=== PATIENT | female | born 1945 | race African-American/Black ===

== ENCOUNTER 2017-11-11 14:34 | Emergency (ER) | payer MEDICARE, OTHER ==
[2017-11-11 18:12] LABS: Anion Gap 12 mmol/L (10-20); BUN (Urea Nitrogen) 17 mg/dL (9.8-20.1); Calc. Creatinine Clearance 0 mL/min (70-130); Calcium 9.6 mg/dL (7.8-10.44); Carbon Dioxide 26 mmol/L (23-31); Chloride 102 mmol/L (98-107); Estimated GFR-MDRD 71; Glucose 83 mg/dL (80-115); Potassium 3.9 mmol/L (3.5-5.1); Sodium 136 mmol/L (136-145)
[2017-11-11 19:23] LABS: Bilirubin Negative (Negative); Blood, Urine Negative (Negative); Clarity CLEAR (Clear); Glucose, Urine (Dipstick) Negative (Negative); Leukocyte Moderate (Negative); Nitrite Negative (Negative); Protein, Urine (Dipstick) Negative (Neg-Trace); Specific Gravity, Urine 1.018 (1.002-1.036); Urobilinogen 0.2 mg/dL (0.2-1.0); pH, Urine 5.5 (5.0-9.0)
[2017-11-11 19:26] LABS: Bacteria/HPF Rare-Few HPF (None Seen); Hyaline Casts/LPF 0-3 HYALINE CAST LPF (0-3 Hyaline); RBC/HPF 0-3 HPF (0-3); Squamous Epithelial 0-3 HPF (0-3)
== END 2017-11-11 19:59 | disposition home or self-care (01) ==
LOC: ERS 14:34
DX: N39.0 Urinary tract infection, site not specified (principal)
CPT/HCPCS: 36415; 80048; 81003; 81015; 87086; 99283

== ENCOUNTER 2019-03-25 16:37 | Inpatient (IN) | payer MEDICARE ==
[2019-03-25 18:21] LABS: #Lymphocytes 0.8 thou/uL (1.20-3.40); #Monocytes 0.2 thou/uL (0.11-0.59); #Neutrophils 2.6 thou/uL (1.40-6.50); %Basophils 0.2 % (0.0-1.0); %Eosinophils 0.4 % (0.0-10.0); %Lymphocytes 21.5 % (21.0-51.0); %Monocytes 6.1 % (0.0-10.0); %Neutrophils 71.9 % (42.0-75.0); Hemoglobin 5.1 g/dL (12.0-16.0); Mean Corpuscular HGB CONC 27.6 g/dL (32.0-36.0); Mean Corpuscular Hemoglobin 15.8 pg (27.0-31.0); Mean Corpuscular Volume 57.2 fL (78.0-98.0); RBC Distribution Width 22.1 % (11.5-14.5); Red Blood Cell (RBC) Count 3.21 mill/uL (4.20-5.40); White Blood Cell (WBC) Count 3.6 thou/uL (4.8-10.8)
[2019-03-25 18:25] LABS: ALT (SGPT) 18 U/L (8-55); AST (SGOT) 19 U/L (5-34); Alkaline Phosphatase 54 U/L (40-150); Anion Gap 9 mmol/L (10-20); BUN (Urea Nitrogen) 12 mg/dL (9.8-20.1); Bilirubin, Total 0.5 mg/dL (0.2-1.2); Calc. Creatinine Clearance 0 mL/min (70-130); Calcium 9.3 mg/dL (7.8-10.44); Carbon Dioxide 27 mmol/L (23-31); Chloride 104 mmol/L (98-107); Estimated GFR-MDRD 87; Globulin 3.1 g/dL (2.4-3.5); Glucose 99 mg/dL (83-110); Potassium 3.2 mmol/L (3.5-5.1); Protein, Total 7.1 g/dL (6.0-8.3); Sodium 137 mmol/L (136-145)
--- NOTE | 2019-03-25 18:32 | RAD ---
TWO VIEW CHEST: 03/25/19 HISTORY: Cough. Mild cardiomegaly. Mild vascular engorgement. No focal infiltrate. No effusion. IMPRESSION: Cardiomegaly and mild vascular engorgement. POS: OFF
[2019-03-25 18:40] LABS: Anisocytosis SLIGHT = 6-15 cells (100X) (0-5/hpf); Hypochromia MODERATE=16-30 cells (100X) (0-5/hpf); MDiff Complete? YES; Mean Platelet Volume 5.1 fL (7.4-10.4); Microcytosis MODERATE=15-30 cells (100X) (0-5/hpf); Platelet Count 151 thou/uL (130-400); Platelet Morphology Comment Appears Adequate; Polychromasia SLIGHT = 2-3 cells (100X) (0-2/hpf); Reflex for Review?? YES; Schistocytes MODERATE= 6-15 cells (100X) (0-1/hpf); Tear Drops SLIGHT = 2-5 cells (100X) (0-1/hpf)
[2019-03-25 23:20] VITALS: BMI 28.7
[2019-03-25] MEDS ORDERED: Acetaminophen 325 MG TAB PO PRN (23:41)
[2019-03-25] MEDS ORDERED: Acetaminophen 650 MG Suppository PR PRN (23:41)
[2019-03-25] MEDS ORDERED: Ondansetron ODT 4 MG TAB PO PRN (23:41)
[2019-03-25] MEDS ORDERED: Ondansetron PF 4 MG/2 ML Vial IVP PRN (23:41)
[2019-03-25 23:58] LABS: Hemoglobin 5.9 g/dL (12.0-16.0)
--- NOTE | 2019-03-26 01:19 | PDOC.EVN ---
Event Note - Event Note Event Note: (Dictation System is Down) ADMISSION H&P Chief Complaint: Urinary Frequency HPI/ROS: This is a 73 year old woman who states she was in her usual state of health until yesterday when she noted urinary frequency. Today she reports having an episode of vomiting, prompting her to come in and be evaluated for what she suspects is a urinary tract infection. She denies any dysuria or hematuria. Laboratory studies done in the ER showed she was significantly anemic with a hemoglobin of 5.1, therefore transfusion with PRBCs was ordered and the patient was referred for further investigation. She denies any changes with her stools. No melena or bright red blood per rectum. Denies any hematemesis and states when she vomited it was food without any blood or coffee ground emesis. She is typically very active and continues to work. Denies any dizziness or lightheadedness. No chest pain or sob. Reports long standing lower leg swelling, currently the right is worse than the left but states it does tend to alternate. PMH: 1. Hypertension. 2. Lower leg edema. PSH: 1. Hysterectomy. SH: Patient states she is fully independent and very active. Continues to work. Denies any smoking history. No drug use or alcohol. Allergies: No Known Drug Allergies Allergy (Verified 03/25/19 23:24) PER ER NOTES Home Medications: Acetaminophen (Tylenol) 650 mg PO Q4-6H PRN PRN Reason: Headache/Fever/Mild Pain (1-3) Vital Signs Temp Pulse Resp BP BP Pulse Ox 03/26/19 00:35 98.2 F 18 158/71 H 99 03/25/19 22:45 99.1 F 76 18 161/71 H 100 Weight 178 lb Physical Exam: PHYSICAL EXAMINATION: GENERAL: The patient appears well developed, well nourished, is in no acute distress. HEENT: Normocephalic and atraumatic. Pupils are equal, round and reactive to light. Sclerae without icterus. Oropharynx is clear. NECK: Supple LUNGS: Clear to auscultation bilaterally without any wheezes, rales, or rhonchi. CARDIAC: Regular rate and rhythm without audible murmurs, rubs, or gallops. ABDOMEN: Soft, nontender, nondistended. Normoactive bowel sounds present. No guarding or rigidity. No renal angle tenderness. EXTREMITIES: RLE swelling extending up to the knee. No pitting edema. NEUROLOGIC: Alert and oriented x3. SKIN: No rash or jaundice. Investigations: 1. CXR: Cardiomegaly and mild vascular engorgement. WBC 3.6 thou/uL (4.8-10.8) L 03/25/19 17:41 Hgb 5.9 g/dL (12.0-16.0) L* 03/25/19 23:45 Hct 20.3 % (36.0-47.0) L 03/25/19 23:45 MCV 57.2 fL (78.0-98.0) L 03/25/19 17:41 Plt Count 151 thou/uL (130-400) 03/25/19 17:41 Neutrophils % 71.9 % (42.0-75.0) 03/25/19 17:41 Sodium 137 mmol/L (136-145) 03/25/19 17:41 Potassium 3.2 mmol/L (3.5-5.1) L 03/25/19 17:41 Chloride 104 mmol/L (98-107) 03/25/19 17:41 Carbon Dioxide 27 mmol/L (23-31) 03/25/19 17:41 BUN 12 mg/dL (9.8-20.1) 03/25/19 17:41 Creatinine 0.79 mg/dL (0.6-1.1) 03/25/19 17:41 Glucose 99 mg/dL (83-110) 03/25/19 17:41 Calcium 9.3 mg/dL (7.8-10.44) 03/25/19 17:41 Total Bilirubin 0.5 mg/dL (0.2-1.2) 03/25/19 17:41 AST 19 U/L (5-34) 03/25/19 17:41 ALT 18 U/L (8-55) 03/25/19 17:41 Alkaline Phosphatase 54 U/L (40-150) 03/25/19 17:41 B-Natriuretic Peptide 135.4 pg/mL (0-100) H 03/25/19 23:36 Serum Total Protein 7.1 g/dL (6.0-8.3) 03/25/19 17:41 Albumin 4.0 g/dL (3.4-4.8) 03/25/19 17:41 Impression & Plan: Ms. Majano is a very pleasant 73 year old woman who presents with urinary frequency and referred for anemia with hemoglobin of 5.1, requiring blood transfusion. No signs/symptoms of bleeding. Patient is receiving her first unit of 2 units of PRBCs. Patient reports urinary frequency. UA and UCx ordered. CXR notable for cardiomegaly and mild vascular engorgement. BNP added on to labs and echo requested. Guaiac negative. Will check iron studies with morning labs. Patient with known history of hypertension. Will resume home meds and monitor BP. For right lower leg swelling, will get venous doppler. Continue to monitor H/H. Potassium will be replaced.
[2019-03-26 02:55] LABS: Bilirubin Negative (Negative); Blood, Urine Negative (Negative); Clarity Clear (Clear); Glucose, Urine (Dipstick) Normal (Negative); Leukocyte 500 Leu/uL (Negative); Nitrite Negative (Negative); Protein, Urine (Dipstick) 10 mg/dL (Neg-Trace); RBC/HPF 0-3 HPF (0-3); Renal Epithelial 0-3 HPF (None Seen); Transitional Epithelial 0-3 HPF (None Seen); WBC/HPF 21-50 HPF (0-3)
[2019-03-26 02:56] LABS: Bacteria/HPF 1+ HPF (None Seen); Urine Culture Reflex No No
[2019-03-26 05:57] LABS: Anion Gap 9 mmol/L (10-20); BUN (Urea Nitrogen) 10 mg/dL (9.8-20.1); Calc. Creatinine Clearance 90 mL/min (70-130); Calcium 9.2 mg/dL (7.8-10.44); Carbon Dioxide 27 mmol/L (23-31); Chloride 106 mmol/L (98-107); Estimated GFR-MDRD Greater than 90; Glucose 94 mg/dL (83-110); Potassium 3.7 mmol/L (3.5-5.1); Sodium 138 mmol/L (136-145)
[2019-03-26 05:58] LABS: Iron 34 ug/dL (50-170); Iron Binding Capacity, Total 358 mcg/dL (265-497)
[2019-03-26 06:25] LABS: Hemoglobin 6.7 g/dL (12.0-16.0); Mean Corpuscular HGB CONC 28.5 g/dL (32.0-36.0); Mean Corpuscular Hemoglobin 19.1 pg (27.0-31.0); Mean Platelet Volume 5.2 fL (7.4-10.4); Platelet Count 109 thou/uL (130-400); RBC Distribution Width 26.2 % (11.5-14.5); Red Blood Cell (RBC) Count 3.49 mill/uL (4.20-5.40); White Blood Cell (WBC) Count 2.9 thou/uL (4.8-10.8)
--- NOTE | 2019-03-26 07:39 | ULT ---
PRELIMINARY REPORT/[facility]/EMERGENCY AFTER HOURS PROCEDURE: EXAM: US Duplex Bilateral Lower Extremity Veins EXAM DATE/TIME: 03/25/2019 11:40 PM CLINICAL HISTORY: 73 years old, female; Edema, localized; Lower extremity, bilateral; Leg, lower; Patient HX: Ble pain/edema, edema worse in RT leg TECHNIQUE: Imaging protocol: Real-time duplex ultrasound of the Bilateral Lower Extremities with 2-D boyd scale, color Doppler flow and spectral waveform analysis with image documentation. Complete exam focused on the bilateral lower extremity veins. COMPARISON: No relevant prior studies available. FINDINGS: Right deep veins: The common femoral, femoral, popliteal and visualized calf veins are patent without thrombus. Normal compressibility, augmentation response and Doppler waveforms. Right superficial veins: Saphenofemoral junction is patent without thrombus. Left deep veins: The common femoral, femoral, popliteal and visualized calf veins are patent without thrombus. Normal compressibility, augmentation response and Doppler waveforms. Left superficial veins: Saphenofemoral junction is patent without thrombus. Soft tissues: Left Bakers cyst measuring up to 4.7cm. Calf edema. IMPRESSION: No evidence of deep vein thrombosis. Left popliteal cyst. Thank you for allowing us to participate in the care of your patient. Dictated and Authenticated by: Josue Aaron MD 03/26/2019 2:05 AM Central Time ([place] & [place]) FINAL REPORT VENOUS DUPLEX SONOGRAM BILATERAL LOWER EXTREMITY PERFORMED ON AN EMERGENCY BASIS: Date: 03/25/19 Time: 2343 hours HISTORY: Bilateral leg pain and edema FINDINGS: I agree with the preliminary report by Dr. Aaron from [facility]. No sonographic jean dence of DVT within either lower extremity. Good color and spectral Doppler flow. Left popliteal cyst incidentally noted. Code QA. Transcribed Date/Time: 03/26/2019 8:06 AM
[2019-03-26 07:50] LABS: Band 1 % (5-11); Eosinophils 4 % (0-10); Hypochromia MODERATE=16-30 cells (100X) (0-5/hpf); Lymphocytes 37 % (21-51); MDiff Complete? YES; Microcytosis MARKED = >30 cells (100X) (0-5/hpf); Monocytes 12 % (0-10); Neutrophil 46 % (42-75); Ovalocytes SLIGHT = 2-5 cells (100X) (0-1/hpf); Platelet Morphology Comment Appears Decreased; Polychromasia SLIGHT = 2-3 cells (100X) (0-2/hpf); Schistocytes SLIGHT = 2-5 cells (100X) (0-1/hpf)
[2019-03-26] MEDS: Famotidine/PF 20 mg/2ml Vial SLOW IVP SCH ×2 (08:02→20:33)
[2019-03-26 10:28] LABS: Hemoglobin 7.1 g/dL (12.0-16.0)
--- NOTE | 2019-03-26 12:59 | PDOC.HOSPP ---
- Subjective Subjective: no felipe bleeding per rectum/vagina/urethra or hemoptysis no prior egd/colonoscopy does not take any pain meds, ambulates by herself (no assistive devices) normal prior mammogram, has had hysterectomy no h/o weight loss or dark stools No cough or expectoration - Objective Vital Signs & Weight: Vital Signs (12 hours) Temp Pulse Resp BP BP Pulse Ox 03/26/19 11:00 97.9 F 51 L 19 169/65 H 100 03/26/19 08:00 95 03/26/19 07:38 98.1 F 55 L 17 182/78 H 95 03/26/19 03:40 98.7 F 17 170/82 H 98 Weight Weight 178 lb Most Recent Monitor Data Heart Rate from ECG 83 I&O: 03/25/19 03/26/19 03/27/19 06:59 06:59 06:59 Intake Total 1050 Balance 1050 Result Diagrams: 03/26/19 10:04 03/26/19 05:04 ROS - Review of Systems All systems: All other ROS were reviewed and found negative. - Medication Medications: Active Medications Generic Name Dose Route Start Last Admin Trade Name Freq PRN Reason Stop Dose Admin Acetaminophen 650 mg 03/25/19 23:41 03/26/19 00:38 Tylenol PO 650 mg Q4H PRN Administration Headache/Fever/Mild Pain (1-3) Famotidine 20 mg 03/26/19 09:00 03/26/19 08:02 Pepcid SLOW IVP 20 mg Q12HR MAGDALENE Administration - Exam NAD, awake alert Eye: PERRL, anicteric sclera ENT: no oropharyngeal lesions, moist mucosa Neck: supple, JVD Heart: RRR, no murmur Respiratory: no wheezes, no rales Gastrointestinal: soft, non-tender, normal bowel sounds Extremities: no clubbing, no edema Neurological: CN's grossly intact, no focal deficits Musculoskeletal: normal tone, normal strength Psychiatric: normal affect, A&O x 3 Hosp A/P (1) Severe anemia Code(s): D64.9 - ANEMIA, UNSPECIFIED Status: Acute Plan: iron def (2) UTI (urinary tract infection) Status: Acute Qualifiers: Urinary tract infection type: acute cystitis Hematuria presence: without hematuria Qualified Code(s): N30.00 - Acute cystitis without hematuria (3) HTN (hypertension) Code(s): I10 - ESSENTIAL (PRIMARY) HYPERTENSION Status: Acute Qualifiers: Hypertension type: essential hypertension Qualified Code(s): I10 - Essential (primary) hypertension - Plan has recieved 2 u prbc last night ldh, cea, debi are normal will obtain Hb electrophoresis peripheral smear read is pending flow cytometry pending will obtain GI consultation in view of severe iron def anemia, no prior endoscopies. hemostable Gave updates to son and patient at bedside.
[2019-03-26] MEDS ORDERED: Amlodipine 10 MG TAB PO SCH (13:15)
[2019-03-26] MEDS ORDERED: Furosemide 20 MG/2 ML VIAL SLOW IVP SCH (13:15)
[2019-03-26] MEDS ORDERED: GoLYTELY 4,000 ml Bottle PO SCH (19:30)
[2019-03-26] MEDS ORDERED: Prevnar 13-Val Conj/PF 0.5 ML SYRINGE IM ONE (21:00)
--- NOTE | 2019-03-27 02:52 | CON ---
DATE OF CONSULTATION: REASON FOR CONSULT: Severe iron-deficiency anemia. HISTORY OF PRESENT ILLNESS: Ms. Majano is a 73-year-old female, who came to the emergency room yesterday evening with complaints of shortness of breath and profound fatigue for the past several weeks, but she actually came to the emergency room for frequent urination, left lower extremity swelling, and some cough. She was worried she maybe had UTI or pneumonia. Here, she has a hemoglobin of 5, low MCV. She was given a couple units of blood. She denies any history of melena, hematochezia, or hematemesis. She has had no weight loss, maybe a couple pounds of anything. Her appetite has been good. She has no nausea or vomiting. She notes there is no change in her bowel function. She denies any NSAID use, except for occasionally taking Tylenol or aspirin. She has never had any endoscopy. She has had a previous hysterectomy. She eats well. She works at [employer] and she states after about 12 hours, she gets pretty tired and have a hard time being in the room sometimes, but otherwise felt fine. REVIEW OF SYSTEMS: Negative for chest pain, shortness of breath, dyspnea on exertion, or palpitations. Positive for shortness of breath on exertion, fatigue with exertion, and cough. Negative for fever or chills. PAST MEDICAL HISTORY: Denies any medical problems. PAST SURGICAL HISTORY: Hysterectomy many years ago in 1997. SOCIAL HISTORY: Denies alcohol, drugs, or tobacco. Her is sitting at the bedside. ALLERGIES: NONE KNOWN. MEDICATIONS: None. Present medications Zofran p.r.n. She had Pneumovax. Tylenol p.r.n. Norvasc. PHYSICAL EXAMINATION: GENERAL: She is resting comfortably in bed. VITAL SIGNS: Pulse is 51 to 60, temperature is 98, and blood pressure is /83. HEENT: Oropharynx is dry. Mucous membranes are moist. NECK: Supple. No adenopathy. LUNGS: Clear. HEART: Regular without clicks or murmurs. ABDOMEN: Soft and nontender with no palpable hepatosplenomegaly. There is no rebound. There is no guarding. There is a scar in the midline consistent with previous hysterectomy. EXTREMITIES: Reveal slight edema in the right lower extremity. She has some arthritic changes in the right ankle. On evaluation here, she had a venogram, bilateral lower extremities yesterday which was negative. She had a chest x-ray yesterday that showed some mild cardiomegaly and vascular enlargement. LABORATORY DATA: Hemoglobin is 5.1 on admission with MCV of 57, white count 3.6, and platelet count 151. After 2 units of blood, hemoglobin 7.1 today. Comp met profile was normal. Iron was 34, ferritin was 4.7. BNP was 135 on admission. CEA was 1.03 on admission. Liver function tests were normal. Albumin was 4, protein was 7. ASSESSMENT: Severe iron-deficiency anemia of unknown etiology. She seems to eat well. She does not seem to be losing weight, having change in bowel function, or any bleeding. She does not take any excessive NSAIDs. PLAN: EGD and colonoscopy tomorrow. Job ID: [id number]
[2019-03-27] MEDS: Amlodipine 10 MG TAB PO SCH (08:53)
[2019-03-27] MEDS: Famotidine/PF 20 mg/2ml Vial SLOW IVP SCH ×2 (08:53→20:18)
[2019-03-27] MEDS ORDERED: Iron Sucrose Complex 200 MG in Sodium Chloride 0.9% 250 ML 250 ML IVPB SCH (14:30)
--- NOTE | 2019-03-27 14:33 | PDOC.HOSPP ---
- Subjective Subjective: no sob, she drank golytely prep for colonoscopy is npo for procedure today - Objective Vital Signs & Weight: Vital Signs (12 hours) Temp Pulse Resp BP Pulse Ox 03/27/19 11:04 97.7 F 56 L 16 175/71 H 100 03/27/19 08:53 59 L 03/27/19 07:48 98.3 F 59 L 16 161/73 H 100 03/27/19 05:33 98.2 F 69 18 167/69 H 97 Weight Weight 178 lb Most Recent Monitor Data Heart Rate from ECG 83 I&O: 03/26/19 03/27/19 03/28/19 06:59 06:59 06:59 Intake Total 1050 1000 Output Total 1300 Balance 1050 -300 Result Diagrams: 03/26/19 10:04 03/26/19 05:04 Additional Labs: Accuchecks 03/27/19 03/26/19 05:25 19:42 POC Glucose 99 93 ROS - Review of Systems All systems: All other ROS were reviewed and found negative. - Medication Medications: Active Medications Generic Name Dose Route Start Last Admin Trade Name Freq PRN Reason Stop Dose Admin Acetaminophen 650 mg 03/25/19 23:41 03/26/19 00:38 Tylenol PO 650 mg Q4H PRN Administration Headache/Fever/Mild Pain (1-3) Amlodipine Besylate 10 mg 03/27/19 09:00 03/27/19 08:53 Norvasc PO 10 mg DAILY MAGDALENE Administration Famotidine 20 mg 03/26/19 09:00 03/27/19 08:53 Pepcid SLOW IVP 20 mg Q12HR MAGDALENE Administration - Exam NAD, awake alert Eye: PERRL, anicteric sclera ENT: normocephalic atraumatic, moist mucosa Neck: supple, no JVD Heart: RRR, no murmur Respiratory: no wheezes, no rales Gastrointestinal: soft, non-tender, normal bowel sounds Extremities: no cyanosis, no edema Neurological: CN's grossly intact, no focal deficits Musculoskeletal: normal tone, no muscle wasting Psychiatric: normal affect, A&O x 3 Hosp A/P (1) Severe anemia Code(s): D64.9 - ANEMIA, UNSPECIFIED Status: Acute Plan: iron def (2) UTI (urinary tract infection) Status: Acute Qualifiers: Urinary tract infection type: acute cystitis Hematuria presence: without hematuria Qualified Code(s): N30.00 - Acute cystitis without hematuria (3) HTN (hypertension) Code(s): I10 - ESSENTIAL (PRIMARY) HYPERTENSION Status: Acute Qualifiers: Hypertension type: essential hypertension Qualified Code(s): I10 - Essential (primary) hypertension - Plan will give total of 2 dose iv iron for egd/colonoscopy today hemostable ldh, debi direct and indirect are normal Hb electrophoresis, flow cytometry, protein and urine electrophoresis pending hemeonc consult if egd/colonoscopy are normal
[2019-03-27] MEDS ORDERED: GoLYTELY 4,000 ml Bottle PO SCH ×2 (15:00→16:46)
[2019-03-27] MEDS ORDERED: PROPOFOL 200 MG/20 ML VIAL ONE (15:44)
--- NOTE | 2019-03-27 21:06 | OP ---
DATE OF PROCEDURE: 03/27/2019 PROCEDURES PERFORMED: Esophagogastroduodenoscopy and polypectomy and incomplete colonoscopy secondary to poor prep. ANESTHESIA: TIVA. POSTPROCEDURE DIAGNOSES: 1. Gastric polyp 7 mm slightly ulcerated in the distal aspect of the body at the greater curve, removed by snare polypectomy and submitted to Pathology. 2. Small hiatal hernia with mild reflux esophagitis. 3. Otherwise normal esophagogastroduodenoscopy. 4. Colonoscopy notable for scattered polyps with one large polyp seen in the right colon. Unfortunately secondary to extremely poor prep, these could not be removed. The patient will re-prepped tomorrow for definitive therapy. One of the polyps in the right colon is quite large and may or may not be able to be removed endoscopically, but again the poor prep precluded any meaningful visualization to make determinations whether they could be easily removed. PROCEDURE IN DETAIL: After the patient was informed of the risk, benefits, and possible complications of endoscopy including perforation, bleeding, reaction to medication, and aspiration, informed consent was obtained. The patient was brought to endoscopy suite, where she was sedated in gradual fashion. Once she was comfortable, a bite block was placed inside the orifice. The endoscope was advanced through the esophagus, stomach, and second and third portions of the duodenum. The esophagus notable for that of 4 cm hiatal hernia with mild erythema in the distal esophagus. There was no evidence of ulcers or Cheo ulcers or lesions. Retroflexed views in the stomach were normal. There was a 7-mm nodule-like polyp in the body of the stomach along the greater curve distally. It was removed by hot snare polypectomy and submitted to Pathology. The duodenum was normal. The duodenum of the 2nd and 3rd portions was normal. The scope was removed. The patient tolerated this portion of the procedure well. There were no complications. The patient was turned in the room and rectal exam was performed. The endoscope was advanced to the anal canal through the colon to the appendiceal orifice. The prep was extremely poor. There was a small polyp in the sigmoid colon which we were going to take out, but could not relocate secondary to the poor quality of the prep. Despite irrigation and suction, we could not clear the colon. There was a larger polyp in the right colon, one at the ileocecal valve, and one in the ascending colon, which may have been 1-2 cm in size. Due to the poor prep nature, it could not be fully visualized and could not be removed. The scope was removed. RECOMMENDATIONS: Repeat colonoscopy tomorrow morning. Await pathology from gastric polyp. Job ID: [id number]
[2019-03-28 06:41] LABS: #Eosinphils 0.1 thou/uL (0.0-0.7); #Lymphocytes 1.2 thou/uL (1.20-3.40); #Monocytes 0.4 thou/uL (0.11-0.59); #Neutrophils 2.6 thou/uL (1.40-6.50); %Basophils 0.1 % (0.0-1.0); %Eosinophils 2.8 % (0.0-10.0); %Lymphocytes 27.9 % (21.0-51.0); %Monocytes 9.7 % (0.0-10.0); %Neutrophils 59.5 % (42.0-75.0); Hemoglobin 7.4 g/dL (12.0-16.0); Mean Corpuscular HGB CONC 29.9 g/dL (32.0-36.0); Mean Corpuscular Hemoglobin 19.6 pg (27.0-31.0); Mean Corpuscular Volume 65.5 fL (78.0-98.0); Mean Platelet Volume 5.5 fL (7.4-10.4); Platelet Count 90 thou/uL (130-400); RBC Distribution Width 27.2 % (11.5-14.5); Red Blood Cell (RBC) Count 3.78 mill/uL (4.20-5.40); White Blood Cell (WBC) Count 4.3 thou/uL (4.8-10.8)
[2019-03-28 07:03] LABS: Anion Gap 12 mmol/L (10-20); BUN (Urea Nitrogen) 8 mg/dL (9.8-20.1); Calc. Creatinine Clearance 94 mL/min (70-130); Calcium 9.4 mg/dL (7.8-10.44); Carbon Dioxide 29 mmol/L (23-31); Chloride 102 mmol/L (98-107); Estimated GFR-MDRD Greater than 90; Glucose 86 mg/dL (83-110); Sodium 140 mmol/L (136-145)
[2019-03-28 07:12] LABS: Potassium 2.7 mmol/L (3.5-5.1)
[2019-03-28] MEDS ORDERED: Potassium Chloride 20 MEQ in Premix Bag 1 BAG IVPB SCH (08:15)
[2019-03-28] MEDS: Amlodipine 10 MG TAB PO SCH (08:27)
[2019-03-28] MEDS ORDERED: Iron Sucrose Complex 200 MG in Sodium Chloride 0.9% 250 ML 250 ML IVPB SCH (08:45)
[2019-03-28] MEDS ORDERED: Iron, Sodium Ferric Gluconate 250 MG in Sodium Chloride 0.9% 100 ML IVPB SCH (09:00)
[2019-03-28] MEDS ORDERED: EPINEPHrine 1 MG/10 ML Abboject SYRINGE ONE (12:45)
[2019-03-28] MEDS ORDERED: Lidocaine 1% PF 5 ML VIAL ONE (12:45)
[2019-03-28] MEDS ORDERED: PROPOFOL 200 MG/20 ML VIAL ONE (12:45)
--- NOTE | 2019-03-28 13:07 | PDOC.HOSPP ---
- Subjective Subjective: no sob, has drink 2/3 of her golytely prep...says she is tried of drinking it had one bm and she is not sure if her stool has cleared up egd results noted, will go for repeat colonoscopy when her prep is complete hemeonc consult if colonoscopy doesn't reveal a source for severe iron def anemia Hb electrophoresis, flow cytometry is pending - Objective Vital Signs & Weight: Vital Signs (12 hours) Temp Pulse Resp BP BP Pulse Ox 03/28/19 08:27 67 182/70 H 03/28/19 08:00 100 03/28/19 07:30 97.7 F 67 18 182/73 H 100 Weight Weight 178 lb Most Recent Monitor Data Heart Rate from ECG 83 I&O: 03/27/19 03/28/19 03/29/19 06:59 06:59 06:59 Intake Total 1000 1000 Output Total 1300 Balance -300 1000 Result Diagrams: 03/28/19 06:06 03/28/19 06:06 ROS - Review of Systems All systems: All other ROS were reviewed and found negative. - Medication Medications: Active Medications Generic Name Dose Route Start Last Admin Trade Name Freq PRN Reason Stop Dose Admin Acetaminophen 650 mg 03/25/19 23:41 03/26/19 00:38 Tylenol PO 650 mg Q4H PRN Administration Headache/Fever/Mild Pain (1-3) Amlodipine Besylate 10 mg 03/27/19 09:00 03/28/19 08:27 Norvasc PO 10 mg DAILY MAGDALENE Administration Famotidine 20 mg 03/26/19 09:00 03/28/19 08:28 Pepcid SLOW IVP 20 mg Q12HR MAGDALENE Administration Sodium Chloride 10 ml 03/25/19 23:41 03/28/19 08:29 Flush - Normal Saline IVF 10 ml Q12HR PRN Administration Saline Flush - Exam NAD, awake alert Eye: PERRL, anicteric sclera ENT: normocephalic atraumatic, no oropharyngeal lesions Neck: supple, symmetric, no JVD Heart: RRR, no gallops Respiratory: no wheezes, no rales Gastrointestinal: soft, non-tender, normal bowel sounds Extremities: no cyanosis, no edema Neurological: CN's grossly intact, no focal deficits Musculoskeletal: normal tone, normal strength Psychiatric: normal affect, A&O x 3 Hosp A/P (1) Severe anemia Code(s): D64.9 - ANEMIA, UNSPECIFIED Status: Acute (2) UTI (urinary tract infection) Status: Acute Qualifiers: Urinary tract infection type: acute cystitis Hematuria presence: without hematuria Qualified Code(s): N30.00 - Acute cystitis without hematuria (3) HTN (hypertension) Code(s): I10 - ESSENTIAL (PRIMARY) HYPERTENSION Status: Acute Qualifiers: Hypertension type: essential hypertension Qualified Code(s): I10 - Essential (primary) hypertension - Plan hemostable h/h is stable for colonoscopy today if she finishes prep add cipro for uti continue norvasc, iv iron and pepcid
[2019-03-28] MEDS ORDERED: HYDROmorphone 2 MG/ML VIAL SLOW IVP PRN (13:44)
[2019-03-28] MEDS ORDERED: Morphine Sulfate 2 MG/ML SYRINGE SLOW IVP PRN (13:44)
[2019-03-28] MEDS ORDERED: Ketorolac Tromethamine 30 MG/ML VIAL IVP PRN (13:44)
[2019-03-28] MEDS ORDERED: PACU-Morphine 4MG/ML VIAL SLOW IVP PRN (13:44)
[2019-03-28] MEDS ORDERED: Ondansetron HCl/PF 4 MG/2 ML Vial IVP PRN (13:44)
[2019-03-28] MEDS ORDERED: Promethazine HCl 25 MG/ML VIAL IM PRN (13:44)
[2019-03-28] MEDS ORDERED: Meperidine HCl/PF 25 MG/ML VIAL SLOW IVP PRN (13:44)
[2019-03-28] MEDS ORDERED: Promethazine HCl 25 MG/ML VIAL SLOW IVP PRN (13:44)
[2019-03-28] MEDS: Famotidine/PF 20 mg/2ml Vial SLOW IVP SCH ×2 (14:13→20:39)
--- NOTE | 2019-03-28 17:35 | OP ---
DATE OF PROCEDURE: 03/28/2019 PREPROCEDURE DIAGNOSES: 1. Iron deficiency anemia. 2. Colonoscopy yesterday showed multiple polyps, however, quite a bit of retained stool precluded full visualization and removal of these polyps. ANESTHESIA: TIVA. POSTPROCEDURE DIAGNOSES: 1. Five polyps scattered throughout the colon, one in the cecum removed by hot snare polypectomy; four in the ascending and transverse colon, 10 to 4 mm in size, removed by hot and cold snare polypectomy. 2. One 1.5 cm pedunculated in the ascending colon, removed by hot snare polypectomy after epinephrine injection of the stalk. 3. Diverticulosis coli. 4. Very tortuous colon. RECOMMENDATIONS: 1. Repeat colonoscopy in 3 years depending on pathology. 2. Iron supplementation. 3. Follow up on pathology. DESCRIPTION OF PROCEDURE: After the patient was informed of the risks, benefits, and possible complications of endoscopy including perforation, reaction to medication, and aspiration, informed consent was obtained, the patient was brought to endoscopy suite, where she was sedated in gradual fashion. Once she was comfortable, a rectal exam was performed. The endoscope was advanced into the anal canal through the colon. The cecum was identified by ileocecal valve and appendiceal orifice. The exam was difficult and it was done with pressure and the patient manipulation took about an hour and a half in total time. A cecal polyp was noted just behind the ileocecal valve and removed 2 specimens with hot snare polypectomy and submitted to Pathology. There was ascending colon polyp, 1.5 cm in size and a large stalk which was injected with epinephrine 2 mL and removed by hot snare polypectomy and submitted to Pathology. There were 3 other polyps scattered throughout the colon, ascending and transverse anywhere from 4 to 10 mm in size, removed by hot snare polypectomy and submitted to Pathology. Retroflexed views in the rectum were normal. There was no bleeding. There was diffuse diverticulosis coli. The scope was removed. The patient tolerated procedure well with no complications. Job ID: [id number]
[2019-03-29] MEDS: Amlodipine 10 MG TAB PO SCH (08:20)
[2019-03-29] MEDS: Famotidine/PF 20 mg/2ml Vial SLOW IVP SCH (08:21)
[2019-03-29 08:47] LABS: ALT (SGPT) 14 U/L (8-55); AST (SGOT) 15 U/L (5-34); Albumin 3.8 g/dL (3.4-4.8); Alkaline Phosphatase 61 U/L (40-150); Anion Gap 10 mmol/L (10-20); BUN (Urea Nitrogen) 14 mg/dL (9.8-20.1); Bilirubin, Total 0.3 mg/dL (0.2-1.2); Calc. Creatinine Clearance 76 mL/min (70-130); Calcium 9.7 mg/dL (7.8-10.44); Carbon Dioxide 28 mmol/L (23-31); Chloride 103 mmol/L (98-107); Estimated GFR-MDRD 79; Globulin 2.9 g/dL (2.4-3.5); Glucose 99 mg/dL (83-110); Protein, Total 6.7 g/dL (6.0-8.3); Sodium 138 mmol/L (136-145)
[2019-03-29 09:40] LABS: Hemoglobin 7.3 g/dL (12.0-16.0); Mean Corpuscular HGB CONC 29.8 g/dL (32.0-36.0); Mean Corpuscular Hemoglobin 19.4 pg (27.0-31.0); Mean Corpuscular Volume 65.1 fL (78.0-98.0); Mean Platelet Volume 6.4 fL (7.4-10.4); Platelet Count 97 thou/uL (130-400); RBC Distribution Width 27.7 % (11.5-14.5); Red Blood Cell (RBC) Count 3.74 mill/uL (4.20-5.40); White Blood Cell (WBC) Count 7.2 thou/uL (4.8-10.8)
[2019-03-29] MEDS ORDERED: Iron, Sodium Ferric Gluconate 250 MG in Sodium Chloride 0.9% 100 ML IVPB SCH (11:30)
[2019-03-29 11:47] LABS: #Eosinphils 0.1 thou/uL (0.0-0.7); #Lymphocytes 1.3 thou/uL (1.20-3.40); #Monocytes 0.5 thou/uL (0.11-0.59); #Neutrophils 5.3 thou/uL (1.40-6.50); %Eosinophils 0.8 % (0.0-10.0); %Lymphocytes 18.2 % (21.0-51.0); %Monocytes 6.5 % (0.0-10.0); %Neutrophils 74.6 % (42.0-75.0)
[2019-03-29 11:52] LABS: Hypochromia MARKED = >30 cells (100X) (0-5/hpf); MDiff Complete? YES; Macrocytosis SLIGHT = 6-15 cells (100X) (0-5/hpf); Microcytosis MODERATE=15-30 cells (100X) (0-5/hpf); Platelet Morphology Comment Appears Decreased; Schistocytes SLIGHT = 2-5 cells (100X) (0-1/hpf); Spherocytes SLIGHT = 1-5 cells (100X) (None Seen); Tear Drops SLIGHT = 2-5 cells (100X) (0-1/hpf)
[2019-03-29] MEDS ORDERED: ISOVUE-370 76%-LOCM 1 ML ONE (12:01)
--- NOTE | 2019-03-29 13:50 | CT ---
CT OF THE CHEST, ABDOMEN AND PELVIS WITH IV CONTRAST INDICATION: History of anemia concern for undiagnosed malignancy COMPARISON: None. FINDINGS: CHEST: Lungs:Clear. Heart and great vessels:There is small pericardial effusion. There is mild cardiomegaly. There are va scular stations involving thoracic aorta. Pleural space: No pneumothorax or effusion. Additional findings: ABDOMEN: Liver:Normal appearing. Spleen:Normal appearing. Pancreas:Normal appearing. Adrenal Glands:Normal appearing. Kidneys:Normal appearing. Aorta:Normal appearing. Additional findings: No free fluid or free air. Pelvis: Bowel:Normal appearing. Bladder:Normal appearing. Reproductive structures:Surgically absent Rectum and perirectal soft tissues:Normal appearing. Additional findings: No free fluid or free air. Osseous structures: There is scattered degenerative and osteoarthritic change present. No acute fracture or subluxation d emonstrated. Diffuse osteopenia IMPRESSION: 1. No definite CT evidence to suggest malignancy 2. Small pericardial effusion and mild cardiomegaly
--- NOTE | 2019-03-29 13:56 | PRG ---
DATE OF SERVICE: 03/29/2019 SUBJECTIVE: Ms. Majano is doing well without complaints. She is drinking contrast for a CAT scan, which has been ordered by the hospitalist. Medications unchanged. She did receive IV iron yesterday. OBJECTIVE: VITAL SIGNS: Temperature 98, pulse 84, blood pressure 154/77. GENERAL: She is resting comfortably, sitting up in bed, looking out the window. HEENT: Conjunctivae and sclerae are clear. ABDOMEN: Soft and nontender. LABORATORY DATA: platelet count 97,000 . Sodium 138, potassium 3.0, BUN and creatinine 14 and 0.8. Liver function tests are normal. Albumin 3.8, protein 6.7. She had a flow cytometry that was normal. ASSESSMENT: Anemia, likely iron deficiency, unclear etiology, probably related to her multiple polyps were removed, seems to have occurred over a slow period of time. There is no evidence of celiac disease on EGD and upper GI lesions on EGD. Hospitalist ordered a CAT scan today to make sure not missing other lesions, which is reasonable, and actually, she did have this ulcerative lesion in the gastric antrum on the floor, which may have been a source of bleeding as well, this was removed. RECOMMENDATIONS: If CT is normal, I think she can go home. We can follow up on her path as an outpatient. I have her phone number. She should remain on a PPIs, took out ulcerated nodule in the stomach. She would remain on iron as well. I could see her back in the office and follow up in a couple of weeks. She should be discharged to home with some oral iron supplementation and PPI if she goes home today. Job ID: [id number]
--- NOTE | 2019-03-29 14:21 | PDOC.HOSPP ---
- Subjective Subjective: no new complaints, no sob - Objective Vital Signs & Weight: Vital Signs (12 hours) Temp Pulse Resp BP BP Pulse Ox 03/29/19 08:20 84 154/77 H 03/29/19 08:00 98 03/29/19 07:52 98.7 F 84 20 154/77 H 98 Weight Weight 178 lb Most Recent Monitor Data Heart Rate from ECG 83 I&O: 03/28/19 03/29/19 03/30/19 06:59 06:59 06:59 Intake Total 1000 440 240 Balance 1000 440 240 Result Diagrams: 03/29/19 07:54 03/29/19 07:54 ROS - Review of Systems All systems: All other ROS were reviewed and found negative. - Medication Medications: Active Medications Generic Name Dose Route Start Last Admin Trade Name Freq PRN Reason Stop Dose Admin Acetaminophen 650 mg 03/25/19 23:41 03/26/19 00:38 Tylenol PO 650 mg Q4H PRN Administration Headache/Fever/Mild Pain (1-3) Amlodipine Besylate 10 mg 03/27/19 09:00 03/29/19 08:20 Norvasc PO 10 mg DAILY MAGDALENE Administration Sodium Chloride 10 ml 03/25/19 23:41 03/28/19 08:29 Flush - Normal Saline IVF 10 ml Q12HR PRN Administration Saline Flush - Exam NAD, awake alert Eye: PERRL, anicteric sclera ENT: normocephalic atraumatic, moist mucosa Neck: supple, no JVD Heart: RRR, no murmur Respiratory: CTAB, no rales Gastrointestinal: soft, non-tender, normal bowel sounds Extremities: no cyanosis, no edema Neurological: CN's grossly intact, no focal deficits Musculoskeletal: normal tone, normal strength Hosp A/P (1) Severe anemia Code(s): D64.9 - ANEMIA, UNSPECIFIED Status: Acute (2) UTI (urinary tract infection) Status: Acute Qualifiers: Urinary tract infection type: acute cystitis Hematuria presence: without hematuria Qualified Code(s): N30.00 - Acute cystitis without hematuria (3) HTN (hypertension) Code(s): I10 - ESSENTIAL (PRIMARY) HYPERTENSION Status: Acute Qualifiers: Hypertension type: essential hypertension Qualified Code(s): I10 - Essential (primary) hypertension - Plan iv iron today and in am CT chest/abd/pelvis shows no evidence of malignancy/mass will f/u with in 2 weeks and in 6 weeks when her iron stores are fully up d/w patient is amb in room dc plan in am after another round of iv iron
[2019-03-29] MEDS: Potassium Chloride 20 MEQ TAB PO SCH ×3 (15:17→23:45)
[2019-03-30] MEDS: Potassium Chloride 20 MEQ TAB PO SCH (05:03)
[2019-03-30] MEDS: Amlodipine 10 MG TAB PO SCH (08:06)
[2019-03-30] MEDS ORDERED: Iron, Sodium Ferric Gluconate 250 MG in Sodium Chloride 0.9% 100 ML IVPB SCH (08:30)
--- NOTE | 2019-03-30 13:55 | PRG ---
DATE OF SERVICE: 03/30/2019 SUBJECTIVE: Ms. Majano had a CT scan yesterday, which did show no source of her iron deficiency anemia. No small bowel lesions. She is eating well and ready go home. OBJECTIVE: VITAL SIGNS: Temperature 97, pulse 76, blood pressure 104/69. ABDOMEN: Soft, nontender. LABORATORY DATA: Hemoglobin 7.3, white count 7.2, platelet count 97,000. ASSESSMENT: Iron deficiency anemia, possibly related to multiple polyps in the colon or the gastric lesion, which was ulcerated in her stomach. The pathology and all of this is pending. I think she can go home as she has a stable hemoglobin. She needs iron supplementation. She needs to be on a PPI, and she can follow up with her PCP, Dr. Betts. We will call her with results of her biopsies in 1 week. Job ID: [id number]
[2019-03-30 16:37] VITALS: BP 147/70; TEMP 98.3
[2019-03-30 17:09] LABS: A/G Ratio 1.2 (0.7-1.7); Albumin 3.4 g/dL (2.9-4.4); Alpha 1 0.3 g/dL (0.0-0.4); Alpha 2 0.6 g/dL (0.4-1.0); Beta 0.8 g/dL (0.7-1.3); Gamma 1.3 g/dL (0.4-1.8); Globulin, Total 2.9 g/dL (2.2-3.9); M-Spike Not Observed g/dL (Not Observed)
[2019-03-30 18:08] LABS: Hemoglobin F 0 % (0.0-2.0); Interpretation Note: (.)
--- NOTE | 2019-03-30 21:36 | DIS ---
DATE OF ADMISSION: 03/25/2019 DATE OF DISCHARGE: 03/30/2019 DISCHARGE DISPOSITION: To home. PRIMARY DISCHARGE DIAGNOSES: Severe iron-deficiency anemia, likely due to multiple polyps in the colon or the gastric lesion which was ulcerated in her stomach. SECONDARY DISCHARGE DIAGNOSIS: Newly diagnosed hypertension. PROCEDURES DONE DURING HOSPITALIZATION: Chest x-ray done on the day of admission showed cardiomegaly with mild vascular engorgement. Echo with 2D Doppler showed an EF of 60% to 65%. Ultrasound venous Doppler of lower extremities done showed no evidence of DVT. Left popliteal cyst was incidentally noted. The patient had EGD with polypectomy done on 03/27/2019. This showed gastric polyp 7 mm slightly ulcerated in the distal aspect of the body of the greater curvature, removed with snare polypectomy. Had small hiatal hernia with mild reflux esophagitis. 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 No H pylori organisms were identified. Colonoscopy done on 03/28/2019, showed 5 polyps scattered throughout the colon, 1 in the cecum removed by hot snare polypectomy, 4 in the ascending and transverse colon, 10 to 4 mm in size, removed by hot and cold snare polypectomy. One 1.5 cm pedunculated in the ascending colon removed by hot snare polypectomy. Diverticulosis coli was seen, very tortuous colon. A repeat colonoscopy in 3 years is recommended depending on pathology. CT chest, abdomen , and pelvis shows no definite CT evidence to suggest malignancy. There is small pericardial effusion and mild cardiomegaly. LABORATORY DATA: Pending. Colonoscopy, polyps. Histopathology is pending. Discharge H and H are 7.3 and 24. Admitting H and H are 5 and 18 with MCV of 57 , platelet count 151, MCHC 27, RDW 22, 71% neutrophils, 21% lymphocytes, 6.1% monocytes, basophils were 0.2%. There was hypochromia, anisocytosis, microcytosis, and 6 to 15 cystocytes were seen. Peripheral blood smear review by Pathology shows absolute lymphopenia, hypochromic microcytic anemia. Discharge BUN and creatinine are 14 and 0.8. Serum electrophoresis done shows no M spike. CEA levels 1.0, serum iron 34, ferritin 4.70, TIBC 358. BNP 135. LDH was 176, within normal limits. Flow cytometry done shows no diagnostic immunophenotypic abnormalities detected. Inpatient consult, Dr. Broussard, for Gastroenterology. DISCHARGE PLAN: The patient to follow up with Dr. Tamir Fagan in 6 weeks, Dr. Broussard as advised. Primary care physician in 1 week. DISCHARGE MEDICATIONS: 1. Ferrous sulfate 325 mg p.o. twice daily. 2. Norvasc 10 mg p.o. daily. 3. Protonix 40 mg p.o. daily. ALLERGIES: NO KNOWN DRUG ALLERGIES. BRIEF COURSE DURING HOSPITALIZATION: The patient initially was admitted on the with hemoglobin of 5. She did not have any hematemesis, melena, or rectal bleed. In view of this history, the patient was admitted to medical floor. She was given total of 2 units of packed cell transfusion. Her H and H have remained stable around 7 and 24. The patient's ferritin was 4 with severe iron-deficiency anemia. She has had consultation with Dr. Broussard. Upper and lower endoscopies were done. Likely the patient's severe iron-deficiency anemia is related to multiple polyps in the colon or the gastric lesion which was ulcerated in her stomach. She was given IV iron for 4 days. She has been discharged on oral iron. The patient needs to follow up with Dr. Tamir Fagan, Heme-Onc specialist, in 6 weeks once her iron stores are totally repleted. Multiple workup done in the hospital have not revealed any positive results as to the cause of iron-deficiency anemia. Hemoglobin electrophoresis results are pending at present. She is otherwise hemodynamically stable, ambulating, and eating well prior to discharge. Please note, I have seen and examined the patient on the day of discharge. Job ID: [id number] MTDD
[2019-03-31 04:08] LABS: Kappa/Lambda Ratio 5.53 (2.04-10.37)
[2019-03-31 13:10] LABS: Albumin, PEP 24hr Ur 31.1 % (NOT ESTAB.); Alpha-1-Globulin, PEP 24h Ur 11.7 % (NOT ESTAB.); Alpha-2-Globulin, PEP 24h Ur 17.6 % (NOT ESTAB.); Beta Globulin, PEP 24h Ur 10.7 % (NOT ESTAB.); Gamma Globulin, PEP 24h Ur 28.9 % (NOT ESTAB.); M-Spike,% PEP 24hr Ur Not Observed % (Not Observed); Protein, PEP 24hr calculated 202 mg/24 hr (30-150); Protein, Urine 6.4 mg/dL (Not Estab.)
== END 2019-03-30 16:39 | disposition home or self-care (01) | DRG 394 ==
LOC: ERS 16:37 → T4-A 20:20
PROVIDERS: ADMIT Hospitalist; ATTEND Hospitalist
PROC: 30233N1 Transfusion of Nonautologous Red Blood Cells into Peripheral Vein, Percutaneous Approach (ICD-10-PCS; 2019-03-25)
PROC: 0DB68ZZ Excision of Stomach, Via Natural or Artificial Opening Endoscopic (ICD-10-PCS; principal; 2019-03-27)
PROC: 0DJD8ZZ Inspection of Lower Intestinal Tract, Via Natural or Artificial Opening Endoscopic (ICD-10-PCS; 2019-03-27)
PROC: 0DBK8ZZ Excision of Ascending Colon, Via Natural or Artificial Opening Endoscopic (ICD-10-PCS; 2019-03-28)
PROC: 0DBH8ZZ Excision of Cecum, Via Natural or Artificial Opening Endoscopic (ICD-10-PCS; 2019-03-28)
DX: K63.5 Polyp of colon (principal); N30.00 Acute cystitis without hematuria; D50.9 Iron deficiency anemia, unspecified; I10 Essential (primary) hypertension; R35.0 Frequency of micturition; K44.9 Diaphragmatic hernia without obstruction or gangrene; K21.0 Gastro-esophageal reflux disease with esophagitis; K31.7 Polyp of stomach and duodenum; K57.90 Diverticulosis of intestine, part unspecified, without perforation or abscess without bleeding; K25.9 Gastric ulcer, unspecified as acute or chronic, without hemorrhage or perforation; Z90.710 Acquired absence of both cervix and uterus
CPT/HCPCS: 36415; 36416; 36430; 71046; 71260; 74177; 80048; 80053; 81001; 82274; 82378; 82728; 83021; 83540; 83550; 83615; 83735; 83880; 83883; 84156; 84165; 84166; 84484; 85025; 85060; 86850; 86880; 86900; 86901; 88184; 88305; 88312; 93005; 93306; 93970; J0171; J1756; J1940; J2001; J2704; J2916; J3480; J3490; J7050; P9016; Q9966; S0028

== ENCOUNTER 2023-03-26 16:49 | Emergency (ER) | payer MEDICARE ==
[2023-03-26 17:28] LABS: #Eosinphils 0.1 thou/uL (0.0-0.7); #Monocytes 0.3 thou/uL (0.11-0.59); #Neutrophils 1.7 thou/uL (1.40-6.50); %Basophils 0.6 % (0.0-1.0); %Lymphocytes 42.1 % (21.0-51.0); %Neutrophils 46.3 % (42.0-75.0); Hemoglobin 12.6 g/dL (12.0-16.0); Mean Corpuscular HGB CONC 33.2 g/dL (32.0-36.0); Mean Corpuscular Hemoglobin 30.6 pg (27.0-31.0); Mean Corpuscular Volume 92.2 fl (78.0-98.0); Mean Platelet Volume 8.9 fL (7.4-10.4); Platelet Count 190 10x3/uL (130-400); Red Blood Cell (RBC) Count 4.12 mill/uL (4.20-5.40); White Blood Cell (WBC) Count 3.6 10x3/uL (4.8-10.8)
[2023-03-26 18:03] LABS: BUN (Urea Nitrogen) 18 mg/dL (9.8-20.1)
[2023-03-26 18:07] LABS: ALT (SGPT) 10 U/L (8-55); AST (SGOT) 15 U/L (5-34); Albumin 4.1 g/dL (3.4-4.8); Alkaline Phosphatase 51 U/L (40-110); Anion Gap 12 mmol/L (10-20); Bilirubin, Total 0.2 mg/dL (0.2-1.2); Calc. Creatinine Clearance 0 mL/min (70-130); Calcium 10.7 mg/dL (7.8-10.44); Carbon Dioxide 27 mmol/L (23-31); Chloride 103 mmol/L (98-107); Estimated GFR 68; Glucose 114 mg/dL (83-110); Potassium 3.7 mmol/L (3.5-5.1); Protein, Total 7.1 g/dL (5.8-8.1); Sodium 138 mmol/L (136-145)
== END 2023-03-26 20:33 | disposition home or self-care (01) ==
LOC: ERS 16:49
DX: G45.9 Transient cerebral ischemic attack, unspecified (principal); E83.52 Hypercalcemia; I10 Essential (primary) hypertension
CPT/HCPCS: 36415; 70450; 71045; 80053; 84484; 85025; 93005